=== PATIENT | female | born 1985 | race Caucasian/White ===

== ENCOUNTER 2017-03-31 04:42 | Emergency (ER) | payer OTHER ==
[~2017-03-31] VITALS: Ht 162.6 cm; Wt 90.7 kg
[~2017-03-31 04:42] MED LIST: ALEVE220 M1 PO; ANBESOL MM; BACTRIM DS TAB1 EACH PO; CEPHALEXIN500 MG PO; CLINDAMYCIN HC300 MG PO; DOXYCYCLINE HY100 MG PO; ERYTHROMYCIN250 MG PO; ERYTHROMYCIN3.5 GM OD; HYDROCODON-ACE1 EAC3 PO; KEFLEX500 MG PO; MOBIC15 MG PO; NORCO 5-325 TA1 EACH PO; PROMETHAZINE HC25 M1 PO; TRAMADOL HCL50 MG PO; TYLENOL EXTRA500 MG PO
[2017-03-31] MEDS ORDERED: CLEOCIN HCL300 MG PO (05:39)
== END 2017-03-31 05:50 | disposition home or self-care (01) ==
LOC: ED 04:42
DX: L03.115 Cellulitis of right lower limb (principal); F17.200 Nicotine dependence, unspecified, uncomplicated; Z88.0 Allergy status to penicillin
CPT/HCPCS: 96372; 99283; J0696

== ENCOUNTER 2017-04-19 16:56 | Emergency (ER) | payer OTHER ==
[~2017-04-19] VITALS: Ht 162.6 cm; Wt 90.7 kg
[~2017-04-19 16:56] MED LIST changes: +CLEOCIN HCL300 MG PO
[2017-04-19] MEDS ORDERED: KETOROLAC TROME10 MG PO (17:28)
== END 2017-04-19 17:39 | disposition home or self-care (01) ==
LOC: ED 16:56
DX: S90.111A Contusion of right great toe without damage to nail, initial encounter (principal); F17.200 Nicotine dependence, unspecified, uncomplicated; Z88.0 Allergy status to penicillin; Z79.899 Other long term (current) drug therapy; W22.8XXA Striking against or struck by other objects, initial encounter
CPT/HCPCS: 73630; 99283

== ENCOUNTER 2017-05-06 17:32 | Emergency (ER) | payer OTHER ==
[~2017-05-06] VITALS: Ht 162.6 cm; Wt 90.7 kg
[~2017-05-06 17:32] MED LIST changes: +KETOROLAC TROME10 MG PO
[2017-05-06] MEDS ORDERED: BACTRIM DS TAB1 EACH PO (17:58)
[2017-05-06] MEDS ORDERED: NORCO 5-325 TA1 EACH PO (17:58)
== END 2017-05-06 18:36 | disposition home or self-care (01) ==
LOC: ED 17:32
DX: L03.115 Cellulitis of right lower limb (principal); L02.415 Cutaneous abscess of right lower limb; F17.200 Nicotine dependence, unspecified, uncomplicated; Z88.0 Allergy status to penicillin
CPT/HCPCS: 96372; 99283; J0696

== ENCOUNTER 2020-07-17 16:24 | Emergency (ER) | payer OTHER ==
[~2020-07-17] VITALS: Ht 162.6 cm; Wt 220.0 kg
[2020-07-17] MEDS ORDERED: DOXYCYCLINE HY100 MG PO (17:46)
[2020-07-17] MEDS ORDERED: CLEOCIN HCL300 MG PO (17:46)
[2020-07-17] MEDS ORDERED: NORCO 5-325 TA1 EACH PO (17:46)
[2020-07-17] MEDS ORDERED: MUPIROCIN15 GM TOP (18:05)
== END 2020-07-17 18:03 | disposition home or self-care (01) ==
LOC: ED 16:24
DX: S61.052A Open bite of left thumb without damage to nail, initial encounter (principal); S61.251A Open bite of left index finger without damage to nail, initial encounter; S61.253A Open bite of left middle finger without damage to nail, initial encounter; S61.255A Open bite of left ring finger without damage to nail, initial encounter; W54.0XXA Bitten by dog, initial encounter; F17.200 Nicotine dependence, unspecified, uncomplicated; Z88.0 Allergy status to penicillin
CPT/HCPCS: 73130; 99283-25

== ENCOUNTER 2020-10-08 19:00 | Emergency (ER) | payer OTHER ==
[~2020-10-08] VITALS: Ht 162.6 cm; Wt 90.7 kg
[~2020-10-08 19:00] MED LIST changes: +MUPIROCIN15 GM TOP
--- NOTE | 2020-10-10 16:40 | EKG ---
[facility] [address] [facility] [place], [place] [address] Signed Sinus tachycardia Otherwise normal ECG No previous ECGs available Confirmed by MAURICIO RODARTE DO ([id number]) on 10/10/2020 4:39:59 PM Electronically Signed By: MAURICIO RODARTE DO 10/10/20 1640 PATIENT NAME: JANES VERMA Electrocardiogram DATE OF : [birth year] PHYSICIAN: MAURICIO RODARTE DO REPORT #: [id number] REPORT IS CONFIDENTIAL AND NOT TO BE RELEASED WITHOUT AUTHORIZATION
== END 2020-10-08 22:04 | disposition home or self-care (01) ==
LOC: ED 19:00
DX: T50.7X1A Poisoning by analeptics and opioid receptor antagonists, accidental (unintentional), initial encounter (principal); F17.200 Nicotine dependence, unspecified, uncomplicated; Z88.0 Allergy status to penicillin; Z79.899 Other long term (current) drug therapy
CPT/HCPCS: 93005; 93010; 99284-25

== ENCOUNTER 2021-06-08 14:43 | Inpatient (IN) | payer MEDICAID ==
[~2021-06-08] VITALS: Ht 162.6 cm; Wt 80.9 kg
--- NOTE | 2021-06-08 19:58 | NUR ---
PT ARRIVED TO [facility] FLOOR @193 MOVED OVER TOBED INDEPENDENTLY. SIG OTHER AT BEDSIDE. REVIEWED HX WITH PT, SHE DENIES ANY MEDICAL HX AND DENIES NICOTINE REPLACEMENT. WHILE REVIEWING PT'S HX SHE STARTED TO ITCH HER L FOREARM STATING AREAS OF HER SKIN ARE RAISED. WELTS ARE STARTING TO DEVELOPE WITH REDNESS. STOPPED IV VANCO THAT WAS INFUSING AND FLUSHED IV. PT DENIES OTHER SX WITH ABX INFUSION AT THIS TIME AND STATES SHE DID FINE WITH THE IV ABX THAT JUST INFUSED BEFORE THIS ONE (ROCEPHIN). ORIENTED PT TO ROOM AND CALL LIGHT. SHE DENIES FURTHER NEEDS AT THIS TIME. CALL LIGHT IS CLOSE.
--- NOTE | 2021-06-08 20:19 | NUR ---
NOTIFED DR RODARTE OF PT'S REACTION TO THE VANCO, 17MLS HAD INFUSED WHEN PT REPORTED ITCHING AND SWELLING. HE WILL PUT IN NEW ORDERS.
--- NOTE | 2021-06-08 21:30 | NUR ---
ASSESSMENT COMPLETED. GCS 15, A&O X4. IV WNL, CDI, FLUSHED WELL. IV MEDS INFUSING, SCHEDULED MEDS PROVIDED. RIGHT HAND UP IN SLING. LUNGS CLEAR, HEART TONES REGULAR. RIGHT HAND NUMB, SWOLLEN, RED, WARM WITH CAP REFILL SEVERAL SECONDS. CMS INTACT IN OTHER EXTREMITIES. SCATTERED INJECTION SCARS NOTED. ABD SOFT, NONTENDER, BOWEL TONES ACTIVE. ICE WATER PROVIDED. NO OTHER NEEDS. CALL LIGHT IN REACH. S.O. IN ROOM.
--- NOTE | 2021-06-08 22:06 | NUR ---
IN ROOM TO ADMINISTER KETORALAC PER DR RODARTE'S REQUEST TO CONTROL PT'S PAIN. PT FALLING ASLEEP WHILE ADMINISTERING MEDICATION. PT AND SIG OTHER DENY FURTHER NEEDS. CALL LIGHT IS CLOSE.
--- NOTE | 2021-06-09 | NUR ---
PT RESTING IN BED, ARM ABOVE HEAD IN SLING. CALL LIGHT IN REACH.
--- NOTE | 2021-06-09 00:15 | NUR ---
PTs VISITOR PROVIDED WITH LINENS TO STAY OVERNIGHT
--- NOTE | 2021-06-09 00:20 | NUR ---
PT CALLS ASKING FOR BEDDING FOR S.O. IN ROOM, PROVIDED. PICTURES TAKEN OF RIGHT HAND AFTER CONSENT SIGNED. PT STATES SHE IS STARTING TO GET SOME FEELING IN HER HAND AT THIS TIME. CALL LIGHT IN REACH.
--- NOTE | 2021-06-09 02:20 | NUR ---
ASSESSMENT, VS AND I&O COMPLETED. PT DENIES PAIN IN RIGHT HAND AT THIS TIME, STATES THERE IS "PRESSURE". PT STATES SHE HAS SOME FEELING IN HER FINGERS. MORE EDEMA IS PRESENT IN WRIST AND ARM PROXIMAL TO WRIST. PULSE INTACT AT RIGHT WRIST AND PT IS ABLE TO MOVE FINGERS AND WRIST. CMS INTACT IN OTHER EXTREMITES. IV WNL. PT HAS SLEPT WELL MOST OF THE SHIFT. S.O. IN ROOM. ICE WATER PROVIDED. CALL LIGHT IN REACH.
--- NOTE | 2021-06-09 05:45 | NUR ---
VS AND I&O COMPLETED. PT STATES SHE HAS 8/10 RIGHT HAND PAIN, PRN PAIN MEDS PROVIDED. IV WNL. PT IS EMOTIONAL ABOUT HAVING LABS DRAWN, COMPLETED BY LAB. RIGHT HAND IS LESS RED THIS MORNING, PT STATES SHE CONTINUES TO GAIN MORE SENSATION WITH TIME. NO SIGNS OF THE REACTION TO VANCO REMAINS. COFFEE PROVIDED TO S.O. CALL LIGHT IN REACH.
--- NOTE | 2021-06-09 07:29 | NUR ---
BEDSIDE REPORT RECIEVED FROM BROADBAND INSTALLER RN, PATIENT RESTING IN BED REINFORECED NEED TO ELEVATE HAND, DENIES ANY NEEDS.
--- NOTE | 2021-06-09 08:55 | NUR ---
RN IN TO ASSESS PATIENT AND DO MORNING MEDS UPON ENTERING ROOM PATIENT SLEEPING WENT TO ASSSES AND FLUSH IV PATIENT YELLED OUT. ADVISED PATIENT TO NOT CURSE AND YELL OUT. IV INFILTRATED WILL CALL FLOAT TO PLACE ONE WITH ULTRASOUND.
--- NOTE | 2021-06-09 10:08 | NUR ---
MED REC COMPLETE
--- NOTE | 2021-06-09 10:17 | NUR ---
PATIENT'S MOM CALLED FOR AN UPDATE PER PATIENT OK TO GIVE HER INFORTMATION NO OTHER NEEDS AT THE TIME
--- NOTE | 2021-06-09 11:28 | NUR ---
PT RESTING WITH R ARM IN SLING HANGING FROM BED. PT VERY POLITE, BUT COULD TELL SHE NEEDED TO REST. GAVE BLESSING, PT THANKED ME WILL FOLLOW
--- NOTE | 2021-06-09 11:30 | NUR ---
Pt lives with her [employer] and 2 high school age children. Plans on dc to home with family. Denies needs. Does not have a pcp and has con cerns about her drug use and would like to speak with SUZANNE. Family will cook, clean, and grocery shop for her. She states she is able to drive. Plans on dc to home when cleared medically.
--- NOTE | 2021-06-09 11:44 | NUR ---
RN IN IN ROOM TO ROUND ON PATIENT SLEEPING AT THE MOMENT, ARM ELEVATED IN SLING, NO NEEDS AT THE MOMENT
--- NOTE | 2021-06-09 14:39 | NUR ---
RN ROUNDED ON PATIENT DENIES ANY NEEDS AT THE MOMENT. ARM REMAINS ELEVATED.
--- NOTE | 2021-06-09 18:44 | NUR ---
PATIENT IN THE ROOM UP IND DENIES ANY NEEDS AT THE MOMENT, ANXIOUS TO GO HOME, PATIENT EDUCATED ON THE IMPORTANCE OF KEEPING HAND ELEVATED. NO PAIN AT THE MOMENT
--- NOTE | 2021-06-09 19:10 | NUR ---
SHIFT REPORT RECEIVED FROM JEANETTE NELSON. PT SITTING UP IN BED, STATES SHE HAS SOME FEELING IN FINGERS. S.O. IN ROOM. NO NEEDS AT THIS TIME. EDUCATION PROVIDED CONCERNING ARM ELEVATION. CALL LIGHT IN REACH.
--- NOTE | 2021-06-09 21:00 | NUR ---
PT CALLED D/T BEEPING IV. IV IS NOW SL. PT WOULD LIKE A SNACK, WILL BRING SANDWICH.
--- NOTE | 2021-06-09 21:20 | NUR ---
IN TO GET VITALS, I&Os HAVE BEEN DONE, NO FURTHER NEEDS AT THIS TIME, PT ENJOING THEIR FOOD,
--- NOTE | 2021-06-09 21:52 | NUR ---
ASSESSMENT COMPLETED. GCS 15, A &O X4. LUNGS CLEAR, HEART TONES REGULAR. ABD SOFT, NONTENDER, BOWEL TONES ACTIVE. CMS INTACT IN ALL BUT RIGHT HAND, RIGHT HAND HAS SWELLING, REDNESS AND TINGLING. IV WNL, CDI, FLUSHED WELL. SNACKS PROVIDED. EDUCATION PROVIDED ABOUT HAND ELEVATION, SAFETY AND I.V. NO OTHER NEEDS. CALL LIGHT IN REACH.
--- NOTE | 2021-06-09 22:22 | NUR ---
PT RESTING IN BED, WATCHING TV. NO NEEDS, CALL LIGHT IN REACH.
--- NOTE | 2021-06-10 | NUR ---
PT S.O. ASKS ABOUT PT DISCHARGE. INFORMED HIM AND PT THAT MD NOTE STATES 1-2 MORE DAYS OF IV ABX. BOTH VERBALIZE UNDERSTANDING. NO OTHER NEEDS. CALL LIGHT IN REACH.
--- NOTE | 2021-06-10 02:00 | NUR ---
PT RESTING IN BED. S.O. IN ROOM. ARM UP IN SLING. CALL LIGHT IN REACH.
--- NOTE | 2021-06-10 04:15 | NUR ---
ASSESSMENT COMPLETED. EDEMA AND REDNESS UNCHANGED. PT STATES SHE HAS ALMOST NO NUMBNESS IN RIGHT HAND. PULSE AND MOTOR INTACT. IV WNL. ICE WATER AND SNACKS PROVIDED. S.O. IN ROOM. CALL LIGHT IN REACH.
--- NOTE | 2021-06-10 04:15 | NUR ---
IN TO GET VITALS, I&Os,PT PROVIDED WITH SNACK, UP TO VOID, NO FURTHER NEEDS AT THIS TIME
--- NOTE | 2021-06-10 06:27 | NUR ---
PT RESTING IN BED. S.O.IN ROOM. CALL LIGHT IN REACH.
--- NOTE | 2021-06-10 06:39 | NUR ---
PT SLEPT WELL THIS SHIFT. VSS, UOS. PT REPORTS MORE FEELING IN HER FINGERTIPS. REDNESS AND EDEMA CONTINUE TO RECEDE. PULSE AND MOTOR INTACT. IV WNL. PT DOES WELL WITH KEEPING HAND ELEVATED.
--- NOTE | 2021-06-10 07:16 | NUR ---
RETURNED PHONE CALL FOR UPDATE TO PT MOTHER, JAX. ALL QUESTIONS ANSWERED. JAX REQUESTS THAT AFTER THE MD SEES THE PT TODAY TO BE CALLED BY RN ABOUT UPDATES. JEANETTE NELSON NOTIFIED.
--- NOTE | 2021-06-10 07:20 | NUR ---
Report recieved from retail shift manager RN, patient currently in bed resting, no needs at the moment call light within reach.
--- NOTE | 2021-06-10 07:55 | NUR ---
PT ASLEEP IN BED WITH PARTNER ALSO IN BED. PT REFUSED WARM CLOTH FOR FACE. WHITE BOARD UPDATED. CALL LIGHT IN REACH. BREAKFAST ORDERED FOR PT. NO FURTHER NEEDS AT THIS TIME.
--- NOTE | 2021-06-10 09:14 | NUR ---
PT AWAKE IN ROOM. PT REQUESTING TO "CHECK OUT FOR A AND CHECK BACK IN AFTER." RN JEANETTE AWARE AND PT AWAKE IN BED AT THIS TIME. CALL LIGHT WITHIN REACH. NO FURTHER NEEDS AT THIS TIME.
--- NOTE | 2021-06-10 09:15 | NUR ---
Patient came out to the nurses station and stated she wanted to check out she has a to go this afternoon and would like to go and come back. nurse informed her it was the providers decsion to let her discharge, if she did leave it would be against medical advice, cely lemon and Dr Mack notified.
--- NOTE | 2021-06-10 10:48 | NUR ---
RN in to round on patient, patient states she spoke to provider, is willing to stay for treatment, denies any other needs at the moment.
[2021-06-10] MEDS ORDERED: CLINDAMYCIN HC300 MG PO (10:57)
== END 2021-06-10 11:28 | disposition home or self-care (01) | DRG 603 ==
LOC: ED 14:43 → MS 14:45
PROVIDERS: ADMIT Student in an Organized Health Care Education/Training Program; ATTEND Student in an Organized Health Care Education/Training Program
PROC: 0H9FXZX Drainage of Right Hand Skin, External Approach, Diagnostic (ICD-10-PCS; principal; 2021-06-08)
DX: L02.511 Cutaneous abscess of right hand (principal); L03.113 Cellulitis of right upper limb; B95.61 Methicillin susceptible Staphylococcus aureus infection as the cause of diseases classified elsewhere; F19.10 Other psychoactive substance abuse, uncomplicated; Z20.822 Contact with and (suspected) exposure to COVID-19; Z88.0 Allergy status to penicillin; Z88.5 Allergy status to narcotic agent; Z79.899 Other long term (current) drug therapy
CPT/HCPCS: 10160; 76882; 80048; 83605; 83735; 85025; 87040; 87070; 87075; 87077; 87186; 87205; 99284-25; C9803; G0378; J0696; J0878; J1170; J1650; J1885; J3370; J7060; J7121; U0003

== ENCOUNTER 2022-05-22 15:33 | Emergency (ER) | payer OTHER ==
[~2022-05-22] VITALS: Ht 162.6 cm; Wt 81.7 kg
[2022-05-22] MEDS ORDERED: NIFEDIPINE ER30 M1 PO (18:28)
== END 2022-05-22 18:44 | disposition home or self-care (01) ==
LOC: ED 15:33
DX: I73.00 Raynaud's syndrome without gangrene (principal); F17.200 Nicotine dependence, unspecified, uncomplicated; Z88.0 Allergy status to penicillin; Z88.1 Allergy status to other antibiotic agents
CPT/HCPCS: 99283

== ENCOUNTER 2022-06-01 15:35 | Emergency (ER) | payer OTHER ==
[~2022-06-01] VITALS: Ht 162.6 cm; Wt 81.3 kg
[~2022-06-01 15:35] MED LIST changes: +NIFEDIPINE ER30 M1 PO
--- OUTSIDE RECORDS SUMMARY | 2022-06-01 15:44 | XMS ---
PreManage Notification: JANES VERMA Security [employer] Events 1 event(s) in the past 18 months Most recent security events: Elopement at [facility] 10/11/2021 10:14 Details: PATIENT LWBS CRITERIA MET - [facility] - 2 Visits in 30 Days CARE PROVIDERS There are no care providers on record at this time. Caitlin has no Care Guidelines for this patient. E.DKyung VISIT COUNT (12 MO.) [address] TOTAL 5 NOTE: Visits indicate total known visits. ED/UCC VISIT TRACKING (12 MO.) 06/01/2022 15:39 [facility] [place] TYPE: Emergency COMPLAINT: - RT HAND INJURY [facility] COMPLAINT: - ARM NUMBNESS 10/11/2021 10:14 [facility] [place] TYPE: Emergency COMPLAINT: - MEDICAL CLEARANCE 06/29/2021 23:05 [facility] [place] TYPE: Emergency DIAGNOSES: - Seizure (Adult - Prior Hx Of) - Unspecified convulsions - seizure - Cerebral edema 06/08/2021 14:44 [facility] [place] TYPE: Emergency COMPLAINT: - POSS ALLERGIC REACTION INPATIENT VISIT TRACKING (12 MO.) 06/08/2021 19:56 [facility] [place] TYPE: Medical Surgical COMPLAINT: - RT HAND ABSCESS DIAGNOSES: - Other psychoactive substance abuse, uncomplicated - Allergy status to narcotic agent - Methicillin susceptible Staphylococcus aureus infection as the cause of diseases classified elsewhere - Cutaneous abscess of right hand - Other buttermaker helper (current) drug therapy - Other jail (current) drug therapy - Other psychoactive substance abuse, uncomplicated - Cellulitis of right upper limb - Allergy status to narcotic agent - Methicillin susceptible Staphylococcus aureus infection as the cause of diseases classified elsewhere - Cellulitis of right upper limb - Allergy status to penicillin - Allergy status to penicillin [email or web address]
== END 2022-06-01 20:14 | disposition home or self-care (01) ==
LOC: ED 15:35
DX: S60.221A Contusion of right hand, initial encounter (principal); Z23 Encounter for immunization; F17.200 Nicotine dependence, unspecified, uncomplicated; Z88.0 Allergy status to penicillin; Z88.1 Allergy status to other antibiotic agents; W23.1XXA Caught, crushed, jammed, or pinched between stationary objects, initial encounter; Y92.89 Other specified places as the place of occurrence of the external cause
CPT/HCPCS: 73130; 90471; 90715; 99283-25; A9270